=== PATIENT | female | born 1960 | race Caucasian/White ===

== ENCOUNTER 2021-08-18 06:34 | Day surgery (SDC) | payer SELFPAY ==
[~2021-08-18] VITALS: Ht 162.6 cm; Wt 57.7 kg
[2021-08-18] MEDS ORDERED: NORVASC2.5 MG PO (07:02)
[2021-08-18 07:08] VITALS: BP 103/69; PULSE 72; TEMP 97
[2021-08-18 08:13] VITALS: BP 105/73; PULSE 66; TEMP 97
[2021-08-18 08:15] VITALS: BP 105/73; PULSE 68
[2021-08-18 08:30] VITALS: BP 116/73; PULSE 56
[2021-08-18 08:45] VITALS: BP 125/83; PULSE 59
--- NOTE | 2021-08-18 09:20 | NUR ---
0813 Pt returns from endo procedure via cart and RN assist to [facility]. Pt ambulates from cart to recliner with RN assist. Monitors on and alarms set. Call light within reach. Report received from CLYDE Ortiz. Pt alert and oriented. Pt requests coffee and arturo crackers. Pt denies any pain or nausea. 0840 Pt taking food and drink well. No complications noted. 0845 Discharge instructions given to pt. All questions answered to her satisfaction. Handed to pt are a thank you card and discharge information. Pt now just waiting on daughter to arrive. 0920 Pt transferred out of the hospital via wheelchair and CLYDE Ritter assist, to private vehicle driven by pt's daughter.
[2021-08-18 09:35] VITALS: BP 152/106; PULSE 88; TEMP 96.7
== END 2021-08-18 09:20 | disposition home or self-care (01) ==
LOC: SDCO 06:34
DX: Z12.11 Encounter for screening for malignant neoplasm of colon (principal); D12.0 Benign neoplasm of cecum; K57.30 Diverticulosis of large intestine without perforation or abscess without bleeding; Z87.891 Personal history of nicotine dependence; Z80.0 Family history of malignant neoplasm of digestive organs
CPT/HCPCS: J2704; J7120

== ENCOUNTER → 2023-03-17 | Outpatient (CLI) | payer MEDICARE ==
[~2023-03-17] MED LIST: NORVASC2.5 MG PO
== END ==
LOC: MC.RAD 14:45
DX: Z12.31 Encounter for screening mammogram for malignant neoplasm of breast (principal)